=== PATIENT | male | born 1980 | race Two or more races ===

== ENCOUNTER 2020-05-11 09:09 | Emergency (ER) | payer OTHER ==
[~2020-05-11] VITALS: Ht 182.9 cm; Wt 96.6 kg
[2020-05-11] MEDS ORDERED: KETO10TA2 PO (11:17)
[2020-05-11] MEDS ORDERED: SKELAXIN800 MG PO (11:17)
[2020-05-11] MEDS ORDERED: PERCOCET 5-3251 EACH PO (11:17)
[2020-05-11] MEDS ORDERED: VOLTAREN100 GM TOP (11:17)
== END 2020-05-11 11:28 | disposition home or self-care (01) ==
LOC: ER 09:09
DX: M75.52 Bursitis of left shoulder (principal)

== ENCOUNTER 2020-06-23 08:17 | Outpatient (CLI) | payer OTHER ==
[~2020-06-23 08:17] MED LIST: KETO10TA2 PO; PERCOCET 5-3251 EACH PO; SKELAXIN800 MG PO; VOLTAREN100 GM TOP
== END 2020-06-23 08:18 | disposition home or self-care (01) ==
LOC: SONOGRAMA 08:17
PROVIDERS: ATTEND Internal Medicine Gastroenterology
DX: R16.0 Hepatomegaly, not elsewhere classified (principal); K81.9 Cholecystitis, unspecified

== ENCOUNTER 2022-01-04 08:48 | Outpatient (CLI) | payer OTHER | END 2022-01-04 09:00 | disposition home or self-care (01) | LOC: SONOGRAMA 08:48 | PROVIDERS: ATTEND Surgery | DX: K80.10 Calculus of gallbladder with chronic cholecystitis without obstruction (principal) ==

== ENCOUNTER 2022-12-05 08:14 | Outpatient (CLI) | payer OTHER | END 2022-12-05 08:27 | disposition home or self-care (01) | LOC: SONOGRAMA 08:14 | PROVIDERS: ATTEND Physical Medicine & Rehabilitation | DX: K80.10 Calculus of gallbladder with chronic cholecystitis without obstruction (principal); M76.61 Achilles tendinitis, right leg ==

== ENCOUNTER 2024-03-31 07:42 | Outpatient (CLI) | payer OTHER | END 2024-03-31 07:50 | disposition home or self-care (01) | LOC: SONOGRAMA 07:42 | PROVIDERS: ATTEND Surgery | DX: K82.4 Cholesterolosis of gallbladder (principal) ==

== ENCOUNTER → 2024-11-22 | Emergency (ER) | payer OTHER ==
[~2024-11-22] VITALS: Ht 177.8 cm; Wt 79.4 kg
== END | disposition left against medical advice (07) ==
LOC: ER 23:40
DX: Z53.21 Procedure and treatment not carried out due to patient leaving prior to being seen by health care provider (principal)

== ENCOUNTER 2025-03-03 11:50 | Outpatient (CLI) | payer OTHER | END 2025-03-03 12:00 | disposition home or self-care (01) | LOC: RAD 11:50 → EDBD 11:50 → RAD 12:00 | PROVIDERS: ATTEND Pediatrics | DX: J18.9 Pneumonia, unspecified organism (principal) ==